=== PATIENT | male | born 1995 | race Caucasian/White ===

== ENCOUNTER 2019-07-21 19:20 | Emergency (ER) | payer BC, OTHER ==
[~2019-07-21] VITALS: Ht 190.5 cm; Wt 77.1 kg
--- NOTE | 2019-07-21 19:41 | Diagnostic Imaging Report ---
CLINICAL HISTORY: Fall 5 years ago. Increased pain lately. COMPARISON: None TECHNIQUE: 3 views of the right wrist. FINDINGS: No acute fracture or dislocation in the right wrist. No focal osseous lesions. Bone mineral density is normal. Soft tissues are unremarkable the right wrist. The carpals are well aligned. IMPRESSION: No acute fracture or dislocation of the right wrist. Dictated by: Dictated on workstation # [id number]
[2019-07-21 20:42] VITALS: BP 107/55
--- NOTE | 2019-07-21 20:45 | ED Upper Extremity ---
General Chief Complaint: Upper Extremity Stated Complaint: RT WRIST INJ Nursing Triage Note: pt states injured wrist 5 years ago when he fell playing basketball and was never seen, no new injury, does work with hands daily Nursing Sepsis Screen: No Definite Risk Source: RN notes reviewed History of Present Illness Date Seen by Provider: Jul 21, 2019 Time Seen by Provider: 20:42 Initial Comments Pt left against medical advice rather than wait to be seen by provider. He had xrays of wrist done based on complaint of pain when he checked in and they did not show any acute fracture or injury. Allergies and Home Medications Allergies Coded Allergies: No Known Drug Allergies (Unverified , 07/21/19) Patient Home Medication List Home Medication List Reviewed: Yes Review of Systems ROS-Unable to Obtain: Unable to obtain ROS as pt left AMA prior to seeing provider Constitutional: see HPI Past Hjedafe-Pkyydv-Qcgahi Hx Past Med/Social Hx: Reviewed Nursing Past Med/Soc Hx Patient Social History Alcohol Use: Denies Use Recreational Drug Use: No Smoking Status: Current Everyday Smoker Type Used: Cigarettes 2nd Hand Smoke Exposure: No Recent Foreign Travel: No Contact w/Someone Who Travel: No Recent Infectious Disease Expo: Yes Recent Hopitalizations: No Physical Abuse: No Sexual Abuse: No Mistreated: No Fear: No Seasonal Allergies Seasonal Allergies: No Past Medical History Surgeries: No Respiratory: No Cardiac: No Neurological: No Genitourinary: No Gastrointestinal: No Musculoskeletal: No Endocrine: No HEENT: No Cancer: No Psychosocial: No Integumentary: No Blood Disorders: No Physical Exam Vital Signs Vital Signs - First Documented 07/21/19 19:32 Temp 97.6 Pulse 73 Resp 15 B/P (MAP) 107/55 (72) Pulse Ox 96 O2 Delivery Room Air Capillary Refill : Less Than 3 Seconds Height, Weight, BMI Height: 6'3.00" Weight: 170lbs. oz. 77.246215hb; BMI Method:Stated General Appearance: other (Unable to perform PE as pt left AMA prior to seeing Provider) Progress/Results/Core Measures Results/Orders My Orders Orders - JEANIE SHRESTHA MD Wrist 3 View Right (07/21/19 19:22) Vital Signs/I&O 07/21/19 19:32 Temp 97.6 Pulse 73 Resp 15 B/P (MAP) 107/55 (72) Pulse Ox 96 O2 Delivery Room Air Blood Pressure Mean: 72 Progress Progress Note : Progress Note Pt left AMA prior to seeing provider Departure Impression Primary Impression: Left against medical advice Disposition: 07 AGAINST MEDICAL ADVICE Condition: Against Medical Advice Departure-Patient Inst. Referrals: NO,LOCAL PHYSICIAN (PCP) Primary Care Physician JEANIE SHRESTHA MD Jul 21, 2019 20:45
== END 2019-07-21 20:42 | disposition left against medical advice (07) ==
LOC: EDUNIT# 19:20 → ER FS 19:21
DX: M25.531 Pain in right wrist (principal); F17.210 Nicotine dependence, cigarettes, uncomplicated
CPT/HCPCS: 73110